=== PATIENT | male | born 1960 | race Caucasian/White ===

== ENCOUNTER 2018-03-18 18:23 | Emergency (ER) | payer MEDICAID ==
[2018-03-18] MEDS ORDERED: Dextrose 50% 50 mL Abboject IVP STA (19:47)
[2018-03-18] MEDS ORDERED: Dextrose 50% 50 mL Abboject IVP ONE (19:47)
--- NOTE | 2018-03-18 21:01 | ED Physician Chart ---
ED Chief Complaint/HPI - Patient Information Date Seen:: 03/18/18 Time Seen:: 19:13 Chief Complaint:: need for tetanus shot History of Present Illness:: need for tetanus shot in an insulin dependent diabetic whose diabetes is not well controlled. Patient also has a small amount of redness around the puncture wound. Allergies:: Allergies Allergy/AdvReac Type Severity Reaction Status Date / Time No Known Allergies Allergy Verified 03/18/18 19:12 Vitals:: Vital Signs - 8 hr 03/18/18 19:13 Temp 98.1 F HR 91 RR 18 BP 144/66 O2 Sat % 97 Historian:: Patient Review:: Nurse's Note Reviewed ED Review of Systems - Review of Systems General/Constitutional: No fever, No chills, No weakness, No diaphoresis, No edema, No loss of appetite, Other (feels warm and diaphoretic prior to diagnosis of low blood sugar) Skin: Other (puncture wound on the bottom of the left foot) Head: No headache, No light-headedness Eyes: No loss of vision, No pain, No diplopia ENT: No earache, No nasal drainage, No sore throat, No tinnitus Neck: No neck pain, No swelling, No thyromegaly, No stiffness, No mass noted Cardio Vascular: No chest pain, No palpitations, No PND, No orthopnea, No edema Pulmonary: No SOB, No cough, No sputum, No wheezing GI: No nausea, No vomiting, No diarrhea, No pain, No melena, No hematochezia, No constipation, No hematemesis G/U: No dysuria, No frequency, No hematuria Musculoskeletal: No bone or joint pain, No back pain, No muscle pain Endocrine: No polyuria, No polydipsia Psychiatric: No prior psych history, No depression, No anxiety, No suicidal ideation Hematopoietic: No bruising, No lymphadenopathy Allergic/Immuno: No urticaria, No angioedema Neurological: No syncope, No focal symptoms, Weakness, No paresthesia, No headache, No seizure, No dizziness, No confusion, No vertigo ED Past Medical History - Past Medical History Obtainable: Yes Past Medical History: DM ED Physical Exam - Physical Examination General/Constitutional: Awake, Well-developed, well-nourished, Alert, No distress, GCS 15, Non-toxic appearing, Ambulatory Head: Atraumatic Eyes: Lids, conjuctiva normal, PERRL, EOMI Skin: Nl inspection, No rash, No skin lesions, No ecchymosis, Well hydrated, No lymphadenopathy ENMT: External ears, nose nl, Nasal exam nl, Lips, teeth, gums nl Neck: Nontender, Full ROM w/o pain, No nuchal rigidity, No mass, No stridor Respiratory: Nl effort/Exclusion, Clear to Auscultation, No Wheeze/Rhonchi/Rales Cardio Vascular: RRR, No murmur, gallop, rubs, NL S1 S2 Other Extremities comments:: puncture wound on the bottom of left foot with surrounding area of erythema measures the size of a dime. no lymphangitis. no fluctulance. no lymphadenopathy. NV intact. Neuro/Psych: Alert/oriented, Normal sensory exam, Normal motor strength, Judgement/insight normal, Mood normal, Normal gait, No focal deficits Misc: Normal back, No paraspinal tenderness ED Assessment - Assessment General Assessment: while in the ER, after evaluation, patient stated that he felt warm and sweaty. Blood sugar checked. It returned at 41. Patient stated that he has been as low as 28 in the past. given D50 and 2 orange juices. Increase in blood sugar. Patient encouraged to review diabetic treatment and insulin doses with primary care physician. Shown how to do wound care. ED Septic Shock - . Is Septic Shock (SBP<90, OR Lactate>4 mmol\L) present?: No - <6hrs of presentation: Vital Signs: Vital Signs - 8 hr 03/18/18 19:13 Temp 98.1 F HR 91 RR 18 BP 144/66 O2 Sat % 97 ED Reassessment (Disposition) - Reassessment Reassessment Condition:: Improved - Diagnosis Diagnosis:: Left foot puncture wound, early infection Hypoglycemia, resolved. while in the ER, after evaluation, patient stated that he felt warm and sweaty. Blood sugar checked. It returned at 41. Patient stated that he has been as low as 28 in the past. given D50 and 2 orange juices. Increase in blood sugar. Patient encouraged to review diabetic treatment and insulin doses with primary care physician. Diabetes mellitus - Aftercare/Follow up Instructions Aftercare/Follow-Up Instructions:: Refer to Discharge Instructions Notes:: while in the ER, after evaluation, patient stated that he felt warm and sweaty. Blood sugar checked. It returned at 41. Patient stated that he has been as low as 28 in the past. given D50 and 2 orange juices. Increase in blood sugar. Patient encouraged to review diabetic treatment and insulin doses with primary care physician. Medication Prescribed:: Bactrim Betadine. - Patient Disposition Discharge/Transfer:: Home Condition at Disposition:: Stable, Improved
== END 2018-03-18 21:04 | disposition home or self-care (01) ==
LOC: ER 18:23
DX: S91.332A Puncture wound without foreign body, left foot, initial encounter (principal); L08.9 Local infection of the skin and subcutaneous tissue, unspecified; E11.9 Type 2 diabetes mellitus without complications; X58.XXXA Exposure to other specified factors, initial encounter; Y93.89 Activity, other specified; Y92.89 Other specified places as the place of occurrence of the external cause; Y99.8 Other external cause status
CPT/HCPCS: 99284; 96365; 96375; 36416; J0690; 82948-90; J7799; Z7502